=== PATIENT | male | born 1945 | race Caucasian/White ===

== ENCOUNTER 2018-01-19 15:02 | Emergency (ER) | payer OTHER, MEDICARE ==
--- NOTE | 2018-01-19 16:56 | RAD ---
RIGHT ANKLE 3 VIEWS: Date: 01/19/18 HISTORY: Pain. Injury. COMPARISON: None. FINDINGS: Ankle mortise is intact and the joint spaces are preserved. There is no evidence of significant soft tissue swelling. No definite fracture. IMPRESSION: No fracture. POS: [facility]
[2018-01-19] MEDS ORDERED: Lidocaine 1% w/Epinephrine 1:100K 20 ML VIAL ONE (17:06)
[2018-01-19] MEDS ORDERED: Amoxicillin/Potassium Clav 875 MG TAB ONE (17:40)
== END 2018-01-19 19:05 | disposition home or self-care (01) ==
LOC: ERS 15:02
DX: S91.011A Laceration without foreign body, right ankle, initial encounter (principal); E11.9 Type 2 diabetes mellitus without complications; I10 Essential (primary) hypertension; Z79.899 Other long term (current) drug therapy; W20.8XXA Other cause of strike by thrown, projected or falling object, initial encounter
CPT/HCPCS: 12034; J2001

== ENCOUNTER 2019-06-08 07:26 | Inpatient (IN) | payer OTHER ==
[2019-06-07 11:37] VITALS: BMI 24.1
[2019-06-08] MEDS ORDERED: Sodium Chloride 0.9% 0 ML ONE (07:51)
[2019-06-08] MEDS ORDERED: ceFOXitin 2 GM/50 ML Duplex BAG ONE (07:51)
[2019-06-08] MEDS ORDERED: Ketorolac Tromethamine 30 MG/ML VIAL ONE (07:51)
[2019-06-08] MEDS ORDERED: Acetaminophen 500 MG TAB ONE (07:51)
[2019-06-08 08:24] LABS: #Basophils 0.1 thou/uL (0.0-0.2); #Eosinphils 0.1 thou/uL (0.0-0.7); #Monocytes 0.7 thou/uL (0.11-0.59); #Neutrophils 6.7 thou/uL (1.40-6.50); %Basophils 0.9 % (0.0-1.0); %Eosinophils 1.4 % (0.0-10.0); %Lymphocytes 11.7 % (21.0-51.0); %Monocytes 8.2 % (0.0-10.0); %Neutrophils 77.9 % (42.0-75.0); Hemoglobin 13.6 g/dL (14.0-18.0); Mean Corpuscular HGB CONC 34.1 g/dL (32.0-36.0); Mean Platelet Volume 7.5 fL (7.4-10.4); Platelet Count 236 thou/uL (130-400); RBC Distribution Width 12.2 % (11.5-14.5); Red Blood Cell (RBC) Count 4.12 mill/uL (4.70-6.10); White Blood Cell (WBC) Count 8.6 thou/uL (4.8-10.8)
[2019-06-08 08:37] LABS: Anion Gap 15 mmol/L (10-20); BUN (Urea Nitrogen) 29 mg/dL (8.4-25.7); Calc. Creatinine Clearance 39 mL/min (70-130); Calcium 9.1 mg/dL (7.8-10.44); Carbon Dioxide 18 mmol/L (23-31); Chloride 113 mmol/L (98-107); Estimated GFR-MDRD 34; Glucose 118 mg/dL (83-110); Potassium 4.7 mmol/L (3.5-5.1); Sodium 141 mmol/L (136-145)
[2019-06-08 08:40] LABS: Hemoglobin A1c 5.3 % (4.0-6.0)
[2019-06-08] MEDS ORDERED: Midazolam HCl 2 mg/2 ml Vial ONE ×2 (09:14→10:21)
[2019-06-08] MEDS ORDERED: Fentanyl 100 MCG/2 ML VIAL ONE ×4 (09:14→12:36)
--- NOTE | 2019-06-08 09:41 | RAD ---
CHEST 2 VIEWS: COMPARISON: 02/16/2008. HISTORY: Preoperative chest radiograph. FINDINGS: Atherosclerosis of the aorta. Normal cardiac silhouette. Pulmonary vessels and hilum are normal. C ostophrenic angles are clear. Lungs are hyperinflated, without consolidation or mass. No pneumothor ax or osseous abnormalities. IMPRESSION: 1. Hyperinflation, chronic obstructive pulmonary disease. 2. Atherosclerosis. POS: [facility]ANNA[facility]
[2019-06-08] MEDS ORDERED: Ketamine 50 MG/ML (10ML VIAL) ONE (09:57)
[2019-06-08] MEDS ORDERED: Lidocaine 2% Jelly 5 ML TUBE ONE (09:57)
[2019-06-08] MEDS ORDERED: PROPOFOL 200 MG/20 ML VIAL ONE (10:07)
[2019-06-08] MEDS ORDERED: Ondansetron PF 4 MG/2 ML Vial ONE (10:07)
[2019-06-08] MEDS ORDERED: Bupivacaine HCl 0.5%/Epinephrine 1:200,000/PF 30 ml Vial ONE (10:07)
[2019-06-08] MEDS ORDERED: Glycopyrrolate 0.2 MG/ML 5 ML SYRINGE ONE (10:07)
[2019-06-08] MEDS ORDERED: Rocuronium Bromide 10 MG/ML (10ML VIAL) ONE (10:07)
[2019-06-08] MEDS ORDERED: Dexamethasone 20 MG/5 ML VIAL ONE (10:07)
[2019-06-08] MEDS ORDERED: Lidocaine 1% w/Epinephrine 1:100K 20 ML VIAL ONE (11:05)
[2019-06-08] MEDS ORDERED: Morphine 4 MG/ML VIAL SLOW IVP PRN (14:51)
[2019-06-08] MEDS ORDERED: Acetaminophen 325 MG TAB PO PRN (14:51)
[2019-06-08] MEDS ORDERED: Morphine 2 MG/ML SYRINGE SLOW IVP PRN (14:51)
[2019-06-08] MEDS ORDERED: Dextrose 50% Abboject 50 ML SYRINGE SLOW IVP PRN (14:51)
[2019-06-08] MEDS ORDERED: Dextrose 5% in Water 1,000 ML IV PRN (14:51)
[2019-06-08] MEDS ORDERED: hydrALAZINE 20 MG/ML VIAL SLOW IVP PRN (14:51)
[2019-06-08] MEDS ORDERED: Ondansetron PF 4 MG/2 ML Vial IVP PRN (14:51)
[2019-06-08] MEDS ORDERED: Promethazine HCl 25 MG/ML VIAL IM PRN (14:51)
--- NOTE | 2019-06-08 15:19 | EKG ---
Test Reason : PREOP Blood Pressure : / mmHG Vent. Rate : 079 BPM Atrial Rate : 079 BPM P-R Int : 172 ms QRS Dur : 102 ms QT Int : 390 ms P-R-T Axes : 065 042 058 degrees QTc Int : 447 ms Normal sinus rhythm Normal ECG Confirmed by CHARLEE VILLAGOMEZ ([id number]) on 06/08/2019 3:19:27 PM Referred By: CJ Confirmed By:CHARLEE VILLAGOMEZ
[2019-06-08] MEDS: Lactated Ringer's 1,000 ML IV SCH ×2 (16:02→22:23)
[2019-06-08] MEDS: Ketorolac Tromethamine 30 MG/ML VIAL IVP SCH (18:25)
[2019-06-08] MEDS: HYDROcodone/Acetaminophen 10/325 mg Tablet PO PRN ×2 (18:29→22:18)
[2019-06-08] MEDS ORDERED: Enoxaparin Sodium 40 MG/0.4 ML SYRINGE SC SCH (21:00)
[2019-06-08] MEDS: Insulin Regular 300 UNITS/3 ML VIAL SC PRN (22:21)
[2019-06-09] MEDS: Ketorolac Tromethamine 30 MG/ML VIAL IVP SCH ×2 (00:22→07:59)
[2019-06-09 05:34] LABS: #Lymphocytes 1.3 thou/uL (1.20-3.40); #Monocytes 0.9 thou/uL (0.11-0.59); #Neutrophils 9.6 thou/uL (1.40-6.50); %Basophils 0.3 % (0.0-1.0); %Eosinophils 0.1 % (0.0-10.0); %Lymphocytes 11.2 % (21.0-51.0); %Monocytes 7.6 % (0.0-10.0); %Neutrophils 80.8 % (42.0-75.0); Hemoglobin 10.9 g/dL (14.0-18.0); Mean Corpuscular Hemoglobin 31.1 pg (27.0-31.0); Mean Corpuscular Volume 97.2 fL (78.0-98.0); Mean Platelet Volume 7.6 fL (7.4-10.4); Platelet Count 191 thou/uL (130-400); Red Blood Cell (RBC) Count 3.52 mill/uL (4.70-6.10); White Blood Cell (WBC) Count 11.8 thou/uL (4.8-10.8)
[2019-06-09 05:52] LABS: Anion Gap 11 mmol/L (10-20); BUN (Urea Nitrogen) 26 mg/dL (8.4-25.7); Calc. Creatinine Clearance 36 mL/min (70-130); Calcium 8.1 mg/dL (7.8-10.44); Carbon Dioxide 17 mmol/L (23-31); Chloride 113 mmol/L (98-107); Estimated GFR-MDRD 31; Glucose 114 mg/dL (83-110); Potassium 4.3 mmol/L (3.5-5.1); Sodium 137 mmol/L (136-145)
--- NOTE | 2019-06-09 07:36 | PDOC.GSPN ---
Surgery Progress Note: Subj - Subjective Patient reports: no new complaints, tolerating liquids well Narrative: Pt did well overnight w/ no acute events and no febrile episodes. Pt had bladder reconstruction sx 20+ y/a, requiring physical pushing on the bladder to urinate. The abd. incision causes pt pain to do so, and pt required norco x1 at 10pm last night. Pt tolerated clear liquid diet well and has appetite to advance. Surgery Progress Note: Obj - Vital signs Vital signs: Vital Signs - Most Recent Temp Pulse Resp BP Pulse Ox 98.1 F 75 18 116/53 L 96 06/09/19 03:51 06/09/19 03:51 06/09/19 03:51 06/09/19 03:51 06/09/19 03:51 - Physical Exam General: no distress ENT: normal mucosa Cardiovascular: regular rate and rhythm Respiratory: normal respiratory effort, breath sounds present Abdomen: soft, non tender, nondistended, positive bowel sounds Integumentary: no rash, other (no edema, no turgor) Psychiatric: oriented to time, oriented to person, oriented to place Wound: healing well Surgery Progress Note: Results - Labs Result Diagrams: 06/09/19 05:18 06/09/19 05:18 Lab results: Laboratory Results - last 24 hr Surgery Progress Note: A/P - Problem (1) S/P appendectomy Current Visit: Yes Code(s): Z90.49 - ACQUIRED ABSENCE OF OTHER SPECIFIED PARTS OF DIGESTIVE TRACT Status: Acute - Plan Plan: Pt is a 74yo CM w/ sig. PMH of bladder cancer which required total reconstruction sx 20+ y/a. Pt presented to the hospital yesterday for elective appendectomy w/ partial cecectomy w/ lysis of adhesions for colon polyps. Today is POD1 and pt is doing well. Pt has pain ass. w/ urination due to his bladder sx but has no other acute complaints. Pt walked multiple laps and has been using inspiratory spirometer as instructed. Pt's BS is well-controlled w/ insulin. Pt has had increase of WBC to 11.8H and decrease of Hgb to 10.9L today , which is not unusual post-op. Pt's BUN decreased slightly while Cr increased to 2.13H, but pt has always had high BUN & Cr. Pt's BP was 156/72H yesterday and 116/53L today, but pt said he was walking fast yesterday before measurement , and said his MAP normally runs ~120. Pt is currently on LR 100mL/hr, urinates multiple times in the bathroom independently, is on clear liquid diet, and is asking for solid food. Continue current tx regimen, encourage further PT, and pt can potentially be dc today or tomorrow.
[2019-06-09] MEDS: HYDROcodone/Acetaminophen 10/325 mg Tablet PO PRN (07:50)
[2019-06-09] MEDS ORDERED: Ketorolac Tromethamine 30 MG/ML VIAL IVP SCH (08:00)
[2019-06-09] MEDS ORDERED: Aspirin 81 mg Enteric Coated Tablet PO SCH (09:00)
[2019-06-09] MEDS ORDERED: Bupropion 150 MG XL TAB PO SCH (09:00)
[2019-06-09] MEDS ORDERED: Famotidine 20 MG TAB PO SCH (09:00)
[2019-06-09] MEDS ORDERED: Famotidine/PF 20 mg/2ml Vial SLOW IVP SCH (09:00)
[2019-06-09] MEDS ORDERED: Losartan 25 MG TAB PO SCH (09:00)
[2019-06-09] MEDS ORDERED: Citalopram 20 MG TAB PO SCH (09:00)
[2019-06-09] MEDS: Lactated Ringer's 1,000 ML IV SCH (10:02)
[2019-06-09 11:26] VITALS: BP 129/69; TEMP 98.9
[2019-06-09] MEDS: Insulin Regular 300 UNITS/3 ML VIAL SC PRN (13:29)
--- NOTE | 2019-06-10 14:52 | OP ---
DATE OF PROCEDURE: 06/08/2019 PREOPERATIVE DIAGNOSIS: Fecal tumor. POSTOPERATIVE DIAGNOSIS: Fecal tumor . PROCEDURE PERFORMED: Extensive lysis of adhesions, laparoscopic appendectomy and cecectomy. ANESTHESIA: General endotracheal. INDICATIONS: The patient is a 74-year-old white male. Recent colonoscopy revealed a sessile polyp essentially surrounding the appendiceal orifice of the cecum. After discussion of options, he presents this time for laparoscopic resection of this area. He has undergone prior surgery in treatment of bladder cancer with bladder reconstruction from ileum. The operation to be performed will depend upon anatomic finding and I have discussed the possibility of doing a right hemicolectomy. DESCRIPTION OF OPERATION: Informed consent was obtained. The patient was taken to the operating room, where general endotracheal anesthesia was obtained with the patient in supine position. Abdomen was prepped with ChloraPrep and draped in sterile fashion. Local anesthetic was infiltrated and a 5 mm left upper abdominal incision was created. Veress needle was passed through this incision into the peritoneal cavity. A pneumoperitoneum was established using carbon dioxide up to pressure of 15 mmHg. A 5 mm trocar port site was established in the same incision. Laparoscopic camera was passed through this port. There were noted to be dense adhesions to the lower midline abdominal incision. These were all small intestine. There was no omental adhesions at all. I placed a second 5 mm port in the left lower quadrant and using these two ports, I carefully began to lyse the adhesions to the anterior abdominal wall. I took down the majority of these adhesions extending down toward the pelvis. The inferior aspect appeared to be more dense and I decided not to try to take those down. The bowel that I did work with was examined numerous times and there was no evidence of perforation or bowel injury. I turned my attention to the right lower quadrant. I was able to identify the cecum and the appendix. Although these could be seen, they were both involved with adhesions on multiple sides. I placed a 12 mm right upper quadrant incision and port. Attention was turned to the cecum and appendix. I started by mobilizing the distal small bowel. There were adhesions involving the distal small bowel that had to be lysed in order to gain access to the cecum. I also mobilized the cecum by incising its lateral attachment and lowering it medially. The appendiceal adhesions were taken down and I was able to elevate the appendix and cecum. With substantial effort and time, I finally got to where the appendix and the cecum could be elevated, and I could identify the area of entrance of the small bowel into the cecum. There appeared to be an adequate cuff of cecum that I mobilized, but I felt it was worthwhile dividing the cecum that was inferior to the ileocecal valve. I obtained an echelon stapler, passed this across the entire cecum of course including the appendiceal orifice. in the appendix with attached cecum was divided. This was placed in a specimen retrieval sac and removed through the 12 mm port site. The fascia at that port site was closed with 0 Vicryl suture using a GraNee needle. Attention was returned back into the abdomen. I inspected the staple line, which was hemostatic. I inspected all areas of dissection including the small bowel mobilized. There was no evidence of bleeding or injury anywhere. All irrigant was aspirated. All ports and instruments were removed under direct vision. Pneumoperitoneum was carefully evacuated. 0.25% Marcaine with epinephrine was infiltrated at each port site. Skin edges approximated with 4-0 Monocryl subcuticular suture. Dermabond was placed externally. There were no complications. The patient tolerated the procedure well and was taken to recovery room in stable condition. Job ID: [id number]
== END 2019-06-09 13:40 | disposition home or self-care (01) | DRG 331 ==
LOC: INTOOBSV 07:26 → SURG A 07:26 → SURG B 13:51 → OBSVTOIN 15:15
PROVIDERS: ADMIT Specialist; ATTEND Specialist
PROC: 0DBH4ZZ Excision of Cecum, Percutaneous Endoscopic Approach (ICD-10-PCS; principal; 2019-06-08)
PROC: 0DNW4ZZ Release Peritoneum, Percutaneous Endoscopic Approach (ICD-10-PCS; 2019-06-08)
PROC: 0DTJ4ZZ Resection of Appendix, Percutaneous Endoscopic Approach (ICD-10-PCS; 2019-06-08)
DX: D12.0 Benign neoplasm of cecum (principal); I10 Essential (primary) hypertension; E11.9 Type 2 diabetes mellitus without complications; F41.9 Anxiety disorder, unspecified; F90.9 Attention-deficit hyperactivity disorder, unspecified type; Z87.891 Personal history of nicotine dependence; Z79.82 Long term (current) use of aspirin; Z79.899 Other long term (current) drug therapy; Z79.4 Long term (current) use of insulin; Z85.51 Personal history of malignant neoplasm of bladder; Z96.652 Presence of left artificial knee joint
CPT/HCPCS: 36415; 36416; 71046; 80048; 83036; 85025; 88307; 93005; 93010; J0670; J0694; J1100; J1650; J1815; J1885; J2250; J2405; J2704; J3010; J3490